=== PATIENT | female | born 1975 | race Hispanic/Latino ===

== ENCOUNTER 2018-11-20 12:29 | Emergency (ER) | payer BC ==
[~2018-11-20] VITALS: Ht 154.9 cm; Wt 72.6 kg
--- NOTE | 2018-11-20 13:36 | Diagnostic Imaging Report ---
EXAMINATION: CXR 2 VIEW - HOPD INDICATION: Chest pain. COMPARISON: None FINDINGS: TUBES and LINES: None. LUNGS: Lungs are well inflated. Lungs are clear. There is no evidence of pneumonia or pulmonary edema. PLEURA: No pleural effusion or pneumothorax. HEART AND MEDIASTINUM: The cardiomediastinal silhouette is unremarkable. BONES AND SOFT TISSUES: No acute osseous lesion. Soft tissues are unremarkable. UPPER ABDOMEN: No free air under the diaphragm. IMPRESSION: No acute radiographic abnormality. Signed by: Dr. Da Gutierrez MD on 11/20/2018 1:33 PM
[2018-11-20 14:08] VITALS: BP 110/80
== END 2018-11-20 14:10 | disposition home or self-care (01) ==
LOC: FSED 12:29
DX: R07.89 Other chest pain (principal); J98.01 Acute bronchospasm
CPT/HCPCS: 71046; 93005; 99283